=== PATIENT | male | born 1980 | race Caucasian/White ===

== ENCOUNTER 2022-05-19 07:35 | Emergency (ER) | payer MEDICAID ==
[~2022-05-19] VITALS: Ht 170.2 cm; Wt 63.0 kg
[2022-05-19 07:46] VITALS: BP 139/90
[2022-05-19] MEDS ORDERED: METHADONE HCL 5MG TABLET PO STA (08:44)
[2022-05-19] MEDS ORDERED: METHADONE HCL 5MG TABLET PO SCH (08:45)
[2022-05-19] MEDS ORDERED: METHADONE HCL 10MG TABLET PO NR (09:15)
== END 2022-05-19 09:25 | disposition home or self-care (01) ==
LOC: ER 08:15
DX: F11.20 Opioid dependence, uncomplicated (principal); Z87.891 Personal history of nicotine dependence
CPT/HCPCS: 99283